=== PATIENT | female | born 1975 | race Caucasian/White ===

== ENCOUNTER 2025-04-04 03:31 | Observation (INO) | payer OTHER, SELFPAY ==
[2025-04-03 22:19] VITALS: BP 175/105
[2025-04-03 22:48] LABS: % Basophils 0.4 % (0-2); % Eosinophils 0.7 % (0-6); % Immature Granulocytes 0.4 % (0-0.5); % Lymphocytes 22.7 % (20.5-51.1); % Monocytes 7.3 % (1.7-9.3); % Neutrophils 68.5 % (42.2-75.2); Absolute Eosinophils 0.1 10^3/uL (0-0.7); Absolute Lymphocytes 1.7 10^3/uL (1.2-3.4); Absolute Monocytes 0.5 10^3/uL (0.1-0.6); Hematocrit 36.6 % (37.0-47.0); Hemoglobin 12.6 g/dL (12.0-16.0); Mean Corp Hgb Conc. 34.4 g/dL (33.0-37.0); Mean Corpuscular Hgb 28.6 pg (27.0-31.0); Mean Corpuscular Volume 83.2 fL (81.0-99.0); Mean Platelet Volume 8.8 fL (7.4-10.4); Nucleated Red Blood Cells % 0 %; Platelet Count 243 10^3/uL (130-400); White Blood Cell Count 7.3 10^3/uL (4.8-10.8)
[2025-04-03 23:22] LABS: Blood Urea Nitrogen 15 mg/dl (7-17); Calcium 9.7 mg/dl (8.4-10.2); Carbon Dioxide 24 mmol/L (22-30); Chloride 106 mmol/L (98-107); Glucose 99 mg/dl (70-99); Potassium 3.8 mmol/L (3.5-5.1); Sodium 140 mmol/L (135-145); eGFR > 60.00
[2025-04-03 23:25] VITALS: BP 176/101
--- NOTE | 2025-04-04 01:19 | ED.GENMED ---
History of Present Illness
General
Chief Complaint: Skin Problem
Source: patient
Exam Limitations: none
Time Seen by Provider: 04/04/25 01:18
Nursing documentation reviewed up to this point in time: agreed with
History of Present Illness
History of Present Illness:
Note:
CHIEF COMPLAINT(S)
Redness and possible abscess on the leg.
HISTORY OF PRESENT ILLNESS
The patient is a 49-year-old female presenting with concerns of redness and a possible abscess on her leg. The symptoms began on a night as a small hive-like lesion, possibly due to a bug bite. By Wednesday, the patient noticed an
abscess formation, and consulted a telehealth service which prescribed trimethoprim-sulfamethoxazole (Bactrim). On Wednesday evening, the area had increased in size, with the presence of blisters. Urgent care on Wednesday marked the area, and advised
warm compresses alongside the prescribed antibiotic Bactrim. By Wednesday, the lump had reduced significantly, but new blisters continued to form. The patient attended another urgent care visit today due to concerns about spreading symptoms, which
appear to worsen at night after taking the antibiotic.
The patient suspects a spider bite might be involved, as she previously encountered a toribio spider in her home days before the onset of symptoms. There has been no drainage from the original abscess; the warm compresses seemingly helped reduce the
abscess. The patient denies experiencing fever or significant pain beyond the site of the abscess.
The patient has a history of reaction to cephalexin and is unable to take it for this infection, leading to Bactrim as the chosen alternative. She is never anything like this before. She also notes that she has been using a stand-alone bike more
frequently and is concerned that this may be contributing to the rash. She reports that originally, it was very painful to walk and she felt pain radiate down the leg but this is since improved. She denies any nausea or vomiting, abdominal pain,
dizziness, lightheadedness. She reports that the rash continues to spread down the leg rapidly and there is even an increase in spread prior to arrival to the emergency department.
SOCIAL DETERMINANTS AFFECTING HEALTH
The patient reports experiencing significant stress, which contributes to the onset of skin reactions, described as 'prickly heat,' on the chest.
ALLERGIES
Cephalexin, full body rash
REVIEW OF SYSTEMS
See HPI
PHYSICAL EXAM
Nursing notes reviewed and vital signs reviewed.
General: Patient is well appearing and in no acute distress; non-toxic
Skin: Warm and dry, area of redness and warmth noted to the right inner thigh extending distally; no palpable area of abscess or induration
Head: Normocephalic, atraumatic
Eyes: Sclera non-icteric. EOMs intact.
Cardiac: Regular rate and rhythm, no murmurs
Peripheral Vascular: No lower extremity swelling or edema
Pulm: Normal respiratory effort, no wheezes, rales, rhonchi
Abdomen: No abdominal tenderness to palpation
Neuro: CN II-XII intact, no focal neurologic deficits.
Psychiatric: Appropriate mood and affect.
DIFFERENTIAL DIAGNOSIS
The Differential Diagnosis includes, in no particular order and is not limited to:
1. Cellulitis
2. Spider bite reaction
3. Abscess
4. Other insect bite
5. Panniculitis
6. Lymphangitis
7. Allergic reaction
8. Contact dermatitis
9. Deep vein thrombosis
10. Skin viral infection
REVIEW OF PRIOR RECORDS
No prior ER physician augmentation or discharge summaries to review
MDM/DISPOSITION
The patient is a 49-year-old female presenting with concerns of redness and a possible abscess on her leg. The abscess has resolved with warm compresses and she was started on Bactrim but the redness has continued to spread down the thigh including
today. She has no fevers or chills. She has no nausea or vomiting. Her blood work is unremarkable. Considering rapid spreading and failing outpatient therapy, will admit for IV antibiotics. Case reviewed with ED attending. Patient referred for
admission.
Review of Systems
Review of Systems
All Other Systems: ROS reviewed and negative except as documented in HPI and ROS
Phy Exam
Physical Exam
Physical Exam:
see hpi
Sepsis
Sepsis Screening
Sepsis Assessment: Sepsis Ruled Out
Sepsis Screen
Sepsis Screen: Sepsis Ruled Out
Date: 04/04/25
Time: 06:33
Course
Orders/Labs/Results
Orders:
Orders
04/03/25 22:40
BMP [Basic Metabolic Panel] Urgent
Complete Blood Count/With Diff Urgent
04/04/25 02:10
Vancomycin [Vancocin] 1,500 mg 0.9% Sodium Chloride 500 ml [Nss] 500 ml IV NOW
04/04/25 02:39
Admit/Transfer Patient As Directed
Co-Sign Provider:
Level of Care: Observation services
Assign to:: Medical/Surgical
Physician / Group: Amarilys
Diagnosis: Cellulitis
PRN Pain Medication Management As Directed
May give lesser potent ordered pain med per pt: Yes
preference::
Protocol:: Medication orders for pain may be administered in a
manner that supports deferring to patient preference
when the pt is:
- Requesting an ordered lesser potent pain medication.
Least to most potent pain medications are defined
as: acetaminophen < NSAID < tramadol < opioids
(morphine, oxycodone, hydromorphone).
- Requesting a lesser dose of the same medication IF
ORDERED.
- Requesting a less intrusive route of administration
if both routes are prescribed by the provider (PO <
IV).
04/04/25 02:40
Code Status As Directed
Resuscitation Status: Full Code
04/04/25 03:00
Flush (0.9% Sodium Chloride) [Flush (Nss)] See Dose Instructions IV PER PROTOCOL
04/04/25 04:52
Acetaminophen [Tylenol] 650 mg PO Q4HPRN PRN
Bisacodyl [Dulcolax] 10 mg RECTAL [id number] PRN
Docusate W/Senna [Senokot-S] 1 tablet PO BIDPRN PRN
Polyethylene Glycol Powder [Miralax] 17 grams PO DAILYPRN PRN
VANCOMYCIN Pharmacy to Dose [VANCOCIN Pharmacy to Dose] 1 each Pharmacy To Prepare [Call Pharmacy To Prepare] 0 ml IV PER PROTOCOL
04/04/25 04:52
Activity As Directed
Activity Level: With Assistance
Vital Signs As Directed
Frequency: Per unit guidelines
DX Deep Vein Thrombosis Video Routine
04/04/25 Breakfast
Regular
At Your Request: Full Participation
Does patient need a safe tray?: No
Levothyroxine [Synthroid] 50 mcg PO DAILY @ 0600
04/04/25 06:16
Basic Metabolic Panel IN AM
Complete Blood Count/No Diff IN AM
04/04/25 18:00
Enoxaparin Sodium [Lovenox] 40 mg SC QPM
Abnormal Lab Results
04/03/25
22:40
Hct 36.6 L %
(37.0-47.0)
04/03/25 22:40
04/03/25 22:40
Vital Signs
Initial and Last Documented VS:
Initial Vital Signs
Temp Pulse Resp BP Pulse Ox
98.5 F 100 16 175/105 98
04/03/25 22:19 04/03/25 22:19 04/03/25 22:19 04/03/25 22:19 04/03/25 22:19
Last Documented Vital Signs
Temp Pulse Resp BP Pulse Ox
98.8 F 95 18 165/94 100
04/03/25 23:25 04/04/25 02:22 04/04/25 02:22 04/04/25 02:22 04/04/25 02:22
*Pulse Oximetry
SaO2: 98
Oxygen Mode of Delivery: Room air
Patient hypoxic: no
*Critical Care Note
Total Time (30-74mins, 75-104mins- exclusive of procedures): Not Applicable
ED Attending Note
-
Portions of this chart may have been created with voice recognition software.� Occasional wrong word or��sound alike� substitutions may have occurred due to the inherent limitations of voice recognition software.
Discharge Plan
Departure
Patient Disposition: Admit
Date of Disposition: 04/04/25
Time of Disposition: 02:05
Admit to: Med/Surg
Presentation/result/management discussed w/ accepting MD/DO: Hospitalist
Patient with high blood pressure during this ER visit?: Yes
Condition: Fair
Discharge Problem:
Cellulitis
Interventions
Interventions:
*Risk Screen - Suicide Last Done: 04/03/25 22:19
*Neglect/Abuse Screening Last Done: 04/03/25 22:27
ED-Skin Assessment Last Done: 04/03/25 23:25
[2025-04-04 02:22] VITALS: BP 165/94
--- NOTE | 2025-04-04 02:41 | HPS.HSE ---
Family Physician
-
Family Physician: Marnie Song
Chief Complaint
-
Skin infection
History of Present Illness
This is a 49-year-old female with past medical history of hypothyroidism presenting to the emergency department with worsening cellulitis on day 4 of Bactrim.
Patient reported that symptoms began as he raised notable erythematous plaque with surrounding pustule just distal to the right groin. She was unsure of any foreign material introduced into that area. She noticed that she was riding an exercise
bike with some irritation. She also noticed that she had a spider on her left and the day before. The following day she noticed increased redness and development of pustules. She was able to decompress this with the warm compresses and start abx.
Despite being on Bactrim for the last 4 days she has continued to have spreading. She has not had any fevers or chills. She denies any itching. She has allergies to cephalexin.
In the emergency department she was afebrile, hemodynamically stable and not requiring any oxygen. CBC was unremarkable. Electrolyte BUN/creatinine were also unremarkable.
Medical History
Past Medical History
Past Medical History: Reports Hypothyroidism
Past Surgical History: Reports None
Social History
Tobacco: Non-smoker
Alcohol: None
Drug: None
Living: With Family
Family History
Family History: Not pertinent
Allergies / Home Medications
Allergies reflects when Allergies were last updated in [facility].
Home Medications with original date entered in [facility]
Allergy/Medication List:
Allergies
Allergy/AdvReac Type Severity Reaction Status Date / Time
cefprozil (From Cefzil) Allergy Unknown Verified 04/03/25 22:49
Home Medications
levothyroxine 50 mcg tablet 50 mcg PO DAILY 04/04/25
Review of Systems
-
Constitutional: Reports No Symptoms
EENT: Reports No Symptoms
Respiratory: Reports No Symptoms
Cardiac: Reports No Symptoms
Abdomen/GI: Reports No Symptoms
: Reports No Symptoms
Musculoskeletal: Reports No Symptoms
Skin: Reports See HPI
Neurological: Reports No Symptoms
Endocrine: Reports No Symptoms
Hematologic/Lymphatic: Reports No Symptoms
Psych: Reports No Symptoms
Physical Exam
Vital Signs
Vital Signs
Temp Pulse Resp BP Pulse Ox
98.8 F 95 18 165/94 100
04/03/25 23:25 04/04/25 02:22 04/04/25 02:22 04/04/25 02:22 04/04/25 02:22
Physical Exam
General: Well Developed, Well Nourished and No Apparent Distress
HEENT: NormoCephalic, Moist mucous membranes and Atraumatic
Respiratory: Clear
Cardiac: S1/S2 and Regular Rhythm; No Murmur or Rub
GI: Soft, Non Tender, Non Distended and Normal Bowel Sounds; No Organomegaly
Rectal: Deferred by Provider
Musculoskeletal: No Clubbing, No Cyanosis and No Edema
Skin: No Rash
Neuro: Nonfocal/grossly intact
Laboratory Results
-
04/03/25 22:40
04/03/25 22:40
Data Reviewed
-
Lab Data: Labs Reviewed by me
Old Records: Reviewed
Impression/Plan
-
IMPRESSION:
He is a 49-year-old female with past medical history of hypothyroidism presenting to the emergency department with skin abscess status post drainage and failure of oral antibiotics (Bactrim x 4 days)
PLAN:
Cellulitis -failure of oral antibiotics x 4 days, no known risk factors, no current abscess or deep tissue infection, nontoxic hemodynamically stable.
-Admit to MedSurg observation
-Blood cultures afebrile
-Continue with IV vancomycin for now
-Check MRSA swab
-Pain control
DVT prophylaxis�Lovenox subcu
CODE STATUS�full code
[2025-04-04] MEDS: VANCOCIN 530 MG IV (03:27)
[2025-04-04] MEDS: FLUSH (NSS) 1 FLUSH IV (06:19)
[2025-04-04] MEDS: SYNTHROID 50 MCG PO (06:26)
[2025-04-04 06:31] LABS: Hematocrit 34.4 % (37.0-47.0); Mean Corp Hgb Conc. 34.9 g/dL (33.0-37.0); Mean Corpuscular Hgb 28.8 pg (27.0-31.0); Mean Corpuscular Volume 82.7 fL (81.0-99.0); Platelet Count 235 10^3/uL (130-400); Red Blood Cell Count 4.16 10^6/uL (4.20-5.40); Red Cell Dist. Width 12.1 % (11.5-14.5); White Blood Cell Count 7.1 10^3/uL (4.8-10.8)
[2025-04-04 06:59] LABS: Blood Urea Nitrogen 12 mg/dl (7-17); Calcium 9.3 mg/dl (8.4-10.2); Carbon Dioxide 24 mmol/L (22-30); Chloride 109 mmol/L (98-107); Glucose 96 mg/dl (70-99); Potassium 3.8 mmol/L (3.5-5.1); Sodium 140 mmol/L (135-145); eGFR > 60.00
[2025-04-04 08:50] VITALS: BP 142/86
--- NOTE | 2025-04-04 09:02 | CM ---
CM reviewed chart and met with pt bedside in ED. IA completed. OBS notice signed. Lives with in multistory home, no JANETTE.
First floor half bath, full flight to BR/full BA
Independent at baseline in ADLs, personal care and ambulation. No DME in home.
No hx VN/SNF
PCP: Marnie Duarte
Pharmacy: [facility]
Discharge plan: Anticipate home pending ongoing medical evaluation, watch for needs
--- NOTE | 2025-04-04 10:32 | PHA.VAN.IN ---
Assessment
- Assessment
Renal Function: Appears similar to baseline
AUC Dosing Plan
- Dosing Variables
Dosing Weight (kg): 71
Dosing CrCl (ml/min): 96
Vd coefficient (L/kg): 0.7
Given age, anticipate patient will clear higher than population PK; therefore, utilized TBW for CrCl calculations
- Empiric Dosing
Initial / Loading Dose: 1500mg - 04/04 03:27
Maintenance Regimen: Vanc 1000mg Q12H starting at 1800
Estimated AUC (mcg*h/mL): 499
Estimated Peak (mcg*h/mL): 31.7
Estimated Trough (mcg/ml): 12.6
Estimated Half Life (H): 8.2
- Monitoring
No levels ordered at this time: consider levels in next few days
Pharmacokinetics Vancomycin I
- -
Patient Age: 49
Patient Sex: Female
Vancomycin Day #: 1
Indication: Skin And Soft Tissue
Requesting Provider: Dr. Panda
Pertinent Antimicrobial Allergies:
cefprozil - unknown
Height / Weight:
Height 5 ft 5 in
Actual Weight 71.4 kg
- Vital Signs / Lab Results
Temp Pulse Resp BP Pulse Ox
98.2 F 82 16 142/86 100
04/04/25 08:50 04/04/25 08:50 04/04/25 08:50 04/04/25 08:50 04/04/25 09:12
Lab Results - Hematology
04/03/25 04/04/25
22:40 06:16
WBC 7.3 7.1
Lab Results - Chemistry
04/03/25 04/04/25
22:40 06:16
BUN 15 12
Creatinine 0.9 0.8
--- NOTE | 2025-04-04 11:59 | W.PN.HOSP.TC ---
Today's Communication/Plan
-
.
Assessment / Plan
Assessment / Plan
Mrs. Elida Grissom is a 49-year-old female with past medical history of hypothyroidism presenting to the emergency department with cellulitis status post failure of Bactrim X 4 days.
1. Cellulitis
- failure of oral antibiotics x 4 days, no known risk factors, no current abscess or deep tissue infection, nontoxic hemodynamically stable.
- Afebrile on admission, WBC within normal limits, labs unremarkable
- Continue with IV vancomycin for now
- IV Zosyn added for extended coverage
- Check MRSA swab
- Pain control as needed
- Ultrasound of the right thigh for evaluation of potential abscess/soft tissue infection
2. Hx hypothyroidism
- Continue home meds
DVT PPx�Lovenox subcu
Diet: Regular
CODE STATUS�full code
Dispo planning: Home
Anticipated Discharge: 24 - 48 hours
Subjective/Interval History
-
Date of Service: April 04, 2025
Patient seen and examined while resting comfortably in bed. and son are at bedside. Since the patient is new to me, I reviewed the history of present illness with her. Briefly, the patient noticed a bug bite on the medial aspect of her
right thigh on 03/29/2025. The next day, she noticed a growing area of erythema and abscess formation. Patient was using warm compresses which was initially alleviated her symptoms, then did telehealth and urgent care visits on the weekend. Since
patient is allergic to cephalexin, they started her on Bactrim with initial mild improvement and then worsening of the area of erythema. Patient notes that the area of induration to initially was called an abscess is currently resolved. Patient
denies any fevers or chills over the course of the week. Also denies headache, dizziness, chest pain, shortness of breath, abdominal pain, nausea, vomiting, or diarrhea over the course of her current skin condition. Also denies numbness, tingling,
or pain distal to the site of cellulitis. Patient admitted for IV antibiotics. No new acute complaints since time of history and physical.
Objective Data
-
Labs:
Laboratory Results
04/04/25
06:16
WBC 7.1
Hgb 12.0
Hct 34.4 L
Plt Count 235
Sodium 140
Potassium 3.8
Chloride 109 H
Carbon Dioxide 24
BUN 12
Creatinine 0.8
Glucose 96
Calcium 9.3
Vital Signs:
Vital Signs
Temp Pulse Resp BP Pulse Ox
98.2 F 82 16 142/86 100
04/04/25 08:50 04/04/25 08:50 04/04/25 08:50 04/04/25 08:50 04/04/25 09:12
Review of Systems
-
History Source: Patient
Constitutional: Denies Fever or Chills
Respiratory: Reports No Symptoms
Cardiac: Reports No Symptoms
Abdomen/GI: Reports No Symptoms
Neuro: Denies Weakness or Numbness
Physical Exam
-
General: Well Developed, Well Nourished, No Apparent Distress, Comfortable and Conversant; Negative Fever or Chills
HEENT: Normocephalic, Atraumatic and Moist Mucous Membranes
Respiratory: Clear to Auscultation and Non Labored Respirations; Negative Wheezes, Rales, Rhonchi or Crackles
Cardiac: Regular Rhythm and S1/S2
Musculoskeletal: No Clubbing, No Cyanosis and No Edema
Skin: Other (There is a large area of erythema (that is marked with pen) on the medial aspect of the right thigh extending medially to the right gluteal cleft area. This area is warm to touch when compared to the left lower extremity. There is no
area of induration or fluctuance on exam.)
Neuro: Awake, Alert, Oriented, Nonfocal/Grossly Intact and No Sensory Deficits (Distal to site of cellulitis)
Psych: Calm
Data Reviewed
-
Labs: Labs Reviewed by me and Discussed with Patient
[2025-04-04] MEDS: ZOSYN 50 IV ×3 (12:11→23:28)
[2025-04-04 14:44] VITALS: BP 156/102; BMI 26.4
--- NOTE | 2025-04-04 14:59 | PTCARENOTE ---
Received pt from ED into room 408-2. Pt ambulatory to bed with no assistance. Cellulitis to R groin with markings outlining the border. Pt denies pain. No complaints at this time.
[2025-04-04] MEDS: LOVENOX 40 MG SC (18:15)
[2025-04-04] MEDS: VANCOCIN 200 IV (18:43)
[2025-04-04] MEDS: VISBIOME 1 CAP PO (19:58)
[2025-04-04 23:44] VITALS: BP 137/86
[2025-04-05] MEDS: ZOSYN 50 IV ×2 (05:28→12:14)
[2025-04-05] MEDS: SYNTHROID 50 MCG PO (06:20)
[2025-04-05] MEDS: VANCOCIN 200 IV (06:20)
[2025-04-05 07:25] VITALS: BP 136/90
--- NOTE | 2025-04-05 07:43 | W.PN.HOSP.TC ---
Today's Communication/Plan
-
.
Assessment / Plan
Assessment / Plan
Mrs. Elida Grissom is a 49-year-old female with past medical history of hypothyroidism presenting to the emergency department with cellulitis status post failure of Bactrim X 4 days.
1. Cellulitis
- failure of oral antibiotics x 4 days [employer], no known risk factors, no current abscess or deep tissue infection, nontoxic hemodynamically stable.
- Afebrile on admission, WBC within normal limits, labs unremarkable
- Labs continue to be unremarkable, patient remains afebrile
- Continue IV vancomycin, IV Zosyn
- Would prefer one more day of IV antibiotics but if patient insistent on d/c can transition to Augmentin 875/125mg PO BID + Doxy 100 mg PO BID, will discuss with patient
- F/u MRSA swab
- Pain control as needed
- US (04/04): neg for abscess
2. Hx hypothyroidism
- Continue home meds
DVT PPx�Lovenox subcu
Diet: Regular
CODE STATUS�full code
Dispo planning: Home
Anticipated Discharge: Within 24 hours
Subjective/Interval History
-
Date of Service: April 05, 2025
Patient seen and examined while resting comfortably in bed. Patient with no acute complaints this morning other than some discomfort at IV site. Denies subjective fevers or chills over night. Denies numbness of tingling distal to the site of
cellulitis, denies pain. Prefers to go home today.
Objective Data
-
Labs:
Laboratory Results
04/05/25
07:38
WBC Pending
Hgb Pending
Hct Pending
Plt Count Pending
Sodium Pending
Potassium Pending
Chloride Pending
Carbon Dioxide Pending
BUN Pending
Creatinine Pending
Glucose Pending
Calcium Pending
Vital Signs:
Vital Signs
Temp Pulse Resp BP Pulse Ox
98.6 F 89 17 137/86 98
04/04/25 23:44 04/04/25 23:44 04/04/25 23:44 04/04/25 23:44 04/04/25 23:44
I&O
04/04/25 04/05/25 04/06/25
06:59 06:59 06:59
Intake Total 920 / 920
Balance 920 / 920
Review of Systems
-
History Source: Patient
Constitutional: Reports No Symptoms
Respiratory: Reports No Symptoms
Cardiac: Reports No Symptoms
Abdomen/GI: Reports No Symptoms
Physical Exam
-
General: Well Developed, Well Nourished, No Apparent Distress, Comfortable and Conversant; Negative Pain, Fever or Chills
HEENT: Normocephalic, Atraumatic, Moist Mucous Membranes and Anicteric
Respiratory: Clear to Auscultation; Negative Wheezes, Rales or Rhonchi
Cardiac: Regular Rhythm and S1/S2
Musculoskeletal: No Clubbing, No Cyanosis and No Edema
Skin: Warm, Dry and Other (area of erythema of the medial aspect of the right groin extending towards the right gluteal cleft; area was demarcated yesterday and there it appears less erythematous 1 inch into the borders; warmth not assessed due to
ice packs)
Neuro: Awake, Alert, Oriented and Nonfocal/Grossly Intact
Psych: Calm
Data Reviewed
-
Ultrasound: Report Reviewed by me and Discussed with Patient
Labs: Labs Reviewed by me and Discussed with Patient
[2025-04-05 07:46] LABS: Hematocrit 37.3 % (37.0-47.0); Hemoglobin 12.5 g/dL (12.0-16.0); Mean Corp Hgb Conc. 33.5 g/dL (33.0-37.0); Mean Corpuscular Hgb 28.1 pg (27.0-31.0); Mean Corpuscular Volume 83.8 fL (81.0-99.0); Mean Platelet Volume 8.8 fL (7.4-10.4); Platelet Count 250 10^3/uL (130-400); Red Blood Cell Count 4.45 10^6/uL (4.20-5.40); White Blood Cell Count 5.7 10^3/uL (4.8-10.8)
[2025-04-05] MEDS: VISBIOME 1 CAP PO (09:08)
[2025-04-05 10:46] LABS: Blood Urea Nitrogen 13 mg/dl (7-17); Calcium 9.5 mg/dl (8.4-10.2); Carbon Dioxide 24 mmol/L (22-30); Chloride 106 mmol/L (98-107); Estimated Creatinine Clearance 69 ml/min; Glucose 87 mg/dl (70-99); Potassium 4.2 mmol/L (3.5-5.1); Sodium 139 mmol/L (135-145); eGFR > 60.00
--- NOTE | 2025-04-05 10:49 | PHA.VAN.FU ---
Vancomycin Assessment / Plan
- Assessment
Renal Function: Stable
WBC's are: WNL
In the past 24 hrs, patient has been: Afebrile
Concomitant Antimicrobials: piperacillin/tazobactam
- Dosing Plan
Continue: Vanc 1000mg Q12H
- Monitoring Plan
No level(s) ordered at this time: consider levels in next few days
- Follow Up
Pharmacy will continue to follow.
Vancomycin Follow UP
- -
Patient Age: 49
Patient Sex: Female
Vancomycin Day #: 2
Indication: Skin And Soft Tissue
Requesting Provider: Dr. Panda
Pertinent Antimicrobial Allergies:
cefprozil - unknown
Height / Weight:
Height 5 ft 5 in
Actual Weight 71.838 kg
- Vital Signs / Lab Results
Temp Pulse Resp BP Pulse Ox
98.6 F 82 18 136/90 97
04/05/25 07:25 04/05/25 07:25 04/05/25 07:25 04/05/25 07:25 04/05/25 07:25
Lab Results - Hematology
04/03/25 04/04/25 04/05/25
22:40 06:16 07:38
WBC 7.3 7.1 5.7
Lab Results - Chemistry
04/03/25 04/04/25 04/05/25
22:40 06:16 07:38
BUN 15 12 13
Creatinine 0.9 0.8 0.9
Estimated Creat Clear 69
[2025-04-05] MEDS: FLUSH (NSS) 2 FLUSH IV (12:15)
[2025-04-05 15:09] VITALS: BP 132/92
--- NOTE | 2025-04-05 15:11 | CM ---
Plan: Discharge to home today; no needs; will transport home
--- NOTE | 2025-04-05 16:27 | W.DCSUMMARY ---
Documented by User: Jez Franco DO, Resident 04/05/25 17:09
Discharge Summary
Discharge Data
Date of Admission: 04/04/25
Date of Discharge: 04/05/25
-
Pending Results: No
Hospital Course
Tania Edmond is a 49-year-old female with a past medical history of hypothyroidism who presented to the emergency department at [facility] on 04/04/2025 with concerns of redness on her medial right thigh.
HISTORY OF PRESENT ILLNESS
Briefly, the patient noticed a bug bite on the medial aspect of her right thigh on 03/29/2025. The next day, she noticed a growing area of erythema and abscess formation. Patient was using warm compresses which initially alleviated her symptoms,
then did telehealth and urgent care visits on the weekend. Since patient is allergic to cephalexin, they started her on Bactrim with initial mild improvement, but then she noticed worsening of the area of erythema. Patient notes that the area of
induration, which initially was called an abscess, is currently resolved. Patient denies any fevers or chills over the course of the week.
ED COURSE
In the emergency department, patient was afebrile and hemodynamically stable with a normal complete blood count and normal basic metabolic panel. She exhibited an area of erythema on the medial aspect of the right thigh that extended medially
towards the right gluteal cleft. The patient was admitted for IV antibiotics.
HOSPITAL COURSE
The patient was started on IV Zosyn as well as IV vancomycin for MRSA coverage. MRSA screen ended up being negative. She remained afebrile with normal white blood cell counts over the course of her admission. Although clinically the patient not
appear to have an abscess, we ordered an ultrasound of the right groin. The study definitively ruled out abscess. The day following initiation of IV antibiotics, the patient had moderate improvement of the area of erythema when compared against
the drawn line of demarcation. The patient wanted to continue treatment at home. Patient was transitioned to oral doxycycline and Augmentin to be completed for a total of 7 days. Outpatient primary care follow-up referral was given to the family
residency clinic.
DISCHARGE RECOMMENDATIONS
Continue Augmentin 875-125 mg every 12 hours and doxycycline 100 mg every 12 hours for 6 more days after being discharged.
If patient experiences allergy to above medications, instructed to use Epi-Pen.
Can use cold compresses as needed.
Follow-up with the [facility] in less than one week.
Order complete blood count and basic metabolic panel in 5 to 7 days after discharge.
Discharge Plan
-
Patient Disposition: Home (Routine Discharge)
Discharge Diagnosis/Procedures: Cellulitis of proximal right leg
Bug bite (possible spider bite)
Condition: Good
Diet: No restrictions
Activity: As tolerated
Driving Restrictions: As prior to admission
Bathing Restrictions: None
Blood Work: Follow-up with family doctor for repeat blood work including CBC and BMP
Activity Restrictions/Additional Instructions:
If you develop worsening of your rash, such as spreading outside of the lines that were previously demarcated, and contact your family doctor or return to the hospital.
Instructions: Cellulitis (skin infection) in adults - Discharge instructions
Referrals:
Family [facility]idency [facility] [Provider Group] - in one week
Marnie Song PA-C [Family Provider, [facility]]
Additional Discharge Medication Instructions: Continue Augmentin 875-125 mg every 12 hours and doxycycline 100 mg every 12 hours for 6 more days after being discharged
If you develop allergic symptoms from your medications use your EpiPen
Prescriptions:
New
doxycycline monohydrate 100 mg capsule
100 mg PO BID 6 Days Qty: 12 0RF
amoxicillin-pot clavulanate 875-125 mg tablet
1 tab PO Q12H 6 Days Qty: 12 0RF
Continued
levothyroxine 50 mcg Tablet
50 mcg PO DAILY
Discharge Orders:
Discharge Patient (As Directed); Ordered 04/05/25
Ordered By: Holland Ford
Discharge Date and Time
Discharge Date/Time: 04/05/25 15:30
Print Language: DUTCH

Documented by User: Holland Ford DO 04/06/25 13:39
Discharge Summary
Discharge Data
Date of Admission: 04/04/25
Date of Discharge: 04/05/25
Total time spent discharging patient (in min): 33
Discharge Plan
-
Patient Disposition: Home (Routine Discharge)
Discharge Diagnosis/Procedures: Cellulitis of proximal right leg
Bug bite (possible spider bite)
Condition: Good
Diet: No restrictions
Activity: As tolerated
Driving Restrictions: As prior to admission
Bathing Restrictions: None
Blood Work: Follow-up with family doctor for repeat blood work including CBC and BMP
Activity Restrictions/Additional Instructions:
If you develop worsening of your rash, such as spreading outside of the lines that were previously demarcated, and contact your family doctor or return to the hospital.
Instructions: Cellulitis (skin infection) in adults - Discharge instructions
Referrals:
[facility] [Provider Group] - in one week
Marnie Song PA-C [Family Provider, Family Practice]
Additional Discharge Medication Instructions: Continue Augmentin 875-125 mg every 12 hours and doxycycline 100 mg every 12 hours for 6 more days after being discharged
If you develop allergic symptoms from your medications use your EpiPen
Prescriptions:
New
doxycycline monohydrate 100 mg capsule
100 mg PO BID 6 Days Qty: 12 0RF
amoxicillin-pot clavulanate 875-125 mg tablet
1 tab PO Q12H 6 Days Qty: 12 0RF
Continued
levothyroxine 50 mcg Tablet
50 mcg PO DAILY
Discharge Orders:
Discharge Patient (As Directed); Ordered 04/05/25
Ordered By: Holland Ford
Discharge Date and Time
Discharge Date/Time: 04/05/25 15:30
Print Language: DUTCH
== END 2025-04-05 15:30 | disposition home or self-care (01) ==
LOC: 4 EAST ACU 03:31
PROVIDERS: Student in an Organized Health Care Education/Training Program; ADMITTING PHYSICIAN Internal Medicine; ATTENDING PHYSICIAN Internal Medicine; EMERGENCY PHYSICIAN Emergency Medicine; FAMILY PHYSICIAN Physician Assistant Medical
DX: L03.115 Cellulitis of right lower limb (principal); Z88.1 Allergy status to other antibiotic agents; E03.9 Hypothyroidism, unspecified; Z79.890 Hormone replacement therapy; R21 Rash and other nonspecific skin eruption
CPT/HCPCS: 76882; 80048; 85025; 85027; 87070; 96365; 96366; 99284; G0378